=== PATIENT | female | born 1965 | race Two or more races ===

== ENCOUNTER 2023-06-22 10:50 | Emergency (ER) | payer OTHER ==
[2023-06-22 11:05] VITALS: TEMP 98.4
--- NOTE | 2023-06-22 12:40 | ED ---
General Adult HPI - General Chief complaint: Abdominal Pain Stated complaint: acid reflux Time Seen by Provider: 06/22/23 12:05 Source: patient, RN notes reviewed, old records reviewed Mode of arrival: ambulatory Limitations: no limitations - History of Present Illness Initial comments: 57-year-old female presenting with request for medication change. Patient has history of GERD, states over the past several days this has been worse. She does admit to eating [place] food which she knows does aggravate her reflux. She is currently on omeprazole 40 mg daily. She was uncertain if she could also take Tums. She denies chest pain. States her symptoms are consistent with previous reflux which she's had for many years. She is informed that this could be related to other potential causes besides gastric reflux but the patient declines any further testing and is here specifically just for change in medication. She has not seen a staff development coordinator and has not had endoscopy. - Related Data Previous Rx's Medication Instructions Recorded Esomeprazole Magnesium [NexIUM 20 mg PO DAILY 30 Days #30 tab 06/22/23 24Hr] Allergies Allergy/AdvReac Type Severity Reaction Status Date / Time guaifenesin [From Robitussin] Allergy Rash/Hives Verified 06/22/23 11:02 Penicillins Allergy Rash/Hives Verified 06/22/23 11:02 Review of Systems ROS Statement: Those systems with pertinent positive or pertinent negative responses have been documented in the HPI. ROS Other: All systems not noted in ROS Statement are negative. Past Medical History Past Medical History: GERD/Reflux History of Any Multi-Drug Resistant Organisms: None Reported Past Surgical History: No Surgical Hx Reported Past Psychological History: No Psychological Hx Reported Smoking Status: Never smoker Past Alcohol Use History: None Reported Past Drug Use History: None Reported General Exam Limitations: no limitations General appearance: alert, in no apparent distress Head exam: Present: atraumatic, normocephalic Eye exam: Present: normal appearance. Absent: PERRL ENT exam: Present: normal exam Neck exam: Present: normal inspection. Absent: tenderness, meningismus Respiratory exam: Present: normal lung sounds bilaterally. Absent: respiratory distress Cardiovascular Exam: Present: regular rate, normal rhythm GI/Abdominal exam: Present: soft. Absent: distended, tenderness, guarding Extremities exam: Present: normal inspection, normal capillary refill. Absent: pedal edema Neurological exam: Present: alert, oriented X3, CN II-XII intact. Absent: motor sensory deficit Psychiatric exam: Present: normal affect, normal mood Skin exam: Present: warm, dry, intact. Absent: cyanosis, diaphoretic Course Vital Signs 06/22/23 06/22/23 10:59 13:03 Temperature 98.4 F Pulse Rate 68 74 Respiratory 20 18 Rate Blood Pressure 183/83 170/88 O2 Sat by Pulse 99 98 Oximetry Medical Decision Making - Medical Decision Making Was pt. sent in by a medical professional or institution (, PA, UNPAID INTERN, urgent care, hospital, or [facility]...) When possible be specific @ -No Did you speak to anyone other than the patient for history (EMS, parent, family, police, friend...)? What history was obtained from this source @ -No Did you review nursing and triage notes (agree or disagree)? Why? @ -I reviewed and agree with nursing and triage notes Were old charts reviewed (outside hosp., previous admission, EMS record, old EKG, old radiological studies, urgent care reports/EKG's, [facility] records)? Report findings @ -No old charts were reviewed Differential Diagnosis (chest pain, altered mental status, abdominal pain women, abdominal pain men, vaginal bleeding, weakness, fever, dyspnea, syncope, headache, dizziness, GI bleed, back pain, seizure, CVA, palpatations, mental health, musculoskeletal)? @ Differential Abdominal Pain Women: Appendicitis, Cholecystitis, diverticulosis, ischemic bowel, pancreatitis, hepatitis, UTI, gastroenteritis, AAA, incarcerated hernia, bowel obstruction, constipation, inflammatory bowel, hepatitis, peptic ulcer disease, splenic infarction, gastric reflux perforated viscus, this is not meant to be an all- inclusive list. EKG interpreted by me (3pts min.). @ -As above X-rays interpreted by me (1pt min.). @ -None done CT interpreted by me (1pt min.). @ -None done U/S interpreted by me (1pt. min.). @ -None done What testing was considered but not performed or refused? (CT, X-rays, U/S, labs)? Why? @ -None What meds were considered but not given or refused? Why? @ -None Did you discuss the management of the patient with other professionals (professionals i.e. , PA, UNPAID INTERN, lab, RT, psych nurse, social services counselor, medical unit secretary, teacher, chief financial officer, family service caseworker)? Give summary @ -No Was smoking cessation discussed for >3mins.? @ -No Was critical care preformed (if so, how long)? @ -No Were there social determinants of health that impacted care today? How? (Homelessness, low income, unemployed, alcoholism, drug addiction, transportation, low edu. Level, literacy, decrease access to med. care, shelter, rehab)? @ -No Was there de-escalation of care discussed even if they declined (Discuss DNR or withdrawal of care, Hospice)? DNR status @ -No What co-morbidities impacted this encounter? (DM, HTN, Smoking, COPD, CAD, Cancer, CVA, ARF, Chemo, Hep., AIDS, mental health diagnosis, sleep apnea, morbid obesity)? @ -Gastric reflux Was patient admitted / discharged? Hospital course, mention meds given and route, prescriptions, significant lab abnormalities, going to OR and other pertinent info. @ -57-year-old female with request for medication change. Patient has symptoms consistent with reflux. I did entertain the possibility of alternative diagnoses with the patient states this is consistent with her previous symptoms and does not want further testing. I did respect her wishes and prescribed Nexium as well as Tums. She's given GI follow-up. Strict return parameters emergency department with any new or worsening symptoms. She is instructed to follow-up with her primary care provider regarding her elevated blood pressure. I would prefer to have done further testing. Undiagnosed new problem with uncertain prognosis? @ -No Drug Therapy requiring intensive monitoring for toxicity (Heparin, Nitro, Insulin, Cardizem)? @ -No Were any procedures done? @ -No Diagnosis/symptom? @ Gastric reflux Acute, or Chronic, or Acute on Chronic? @ -Chronic Uncomplicated (without systemic symptoms) or Complicated (systemic symptoms)? @ -default Side effects of treatment? @ -No Exacerbation, Progression, or Severe Exacerbation? @ -No Poses a threat to life or bodily function? How? (Chest pain, [place], [place], pneumonia, PE, COPD, DKA, ARF, appy, cholecystitis, CVA, Diverticulitis, Homicidal, Suicidal, threat to staff... and all critical care pts) @ -Low risk at this time Disposition Clinical Impression: Abdominal pain Disposition: HOME SELF-CARE Condition: Fair Instructions (If sedation given, give patient instructions): Abdominal Pain (ED) Additional Instructions: Please follow up with gastroenterology. Please return with any worsening or changing symptoms or any new concerns. You may also take Tums for her symptoms. Prescriptions: Esomeprazole Magnesium [NexIUM 24Hr] 20 mg PO DAILY 30 Days #30 tab Is patient prescribed a controlled substance at d/c from ED?: No Referrals: Speedy Ordoñez MD [Primary Care Provider] - 1-2 days Katherine Briones MD [STAFF PHYSICIAN] - 1-2 days Time of Disposition: 13:00
[2023-06-22 13:21] VITALS: BP 170/88; PULSE 74; RESP 18
== END 2023-06-22 13:35 | disposition home or self-care (01) ==
LOC: EC 10:50
DX: R10.9 Unspecified abdominal pain (principal); Z88.0 Allergy status to penicillin; Z88.8 Allergy status to other drugs, medicaments and biological substances
CPT/HCPCS: 99283

== ENCOUNTER 2023-12-14 09:33 | Emergency (ER) | payer OTHER ==
[2023-12-14 09:50] VITALS: RESP 18
[2023-12-14 11:05] LABS: Basophils # (A) 0.1 k/uL (0-0.2); Basophils % (A) 0 %; Eosinophils # (A) 0.1 k/uL (0-0.7); Eosinophils % (A) 1 %; HCT 43.8 % (34.0-46.0); HGB 14.6 gm/dL (11.4-16.0); Lymphocytes # (A) 1.7 k/uL (1.0-4.8); Lymphocytes % (A) 14 %; MCH 29.8 pg (25.0-35.0); MCHC 33.5 g/dL (31.0-37.0); Monocytes # (A) 0.4 k/uL (0-1.0); Monocytes % (A) 4 %; Neutrophils # (A) 9.1 k/uL (1.3-7.7); Neutrophils % (A) 79 %; Platelet Count 270 k/uL (150-450); RBC 4.92 m/uL (3.80-5.40); RDW 13.2 % (11.5-15.5); WBC 11.5 k/uL (3.8-10.6)
[2023-12-14 11:11] LABS: Appearance,Urine Clear (Clear); Bilirubin,Urine Negative (Negative); Blood,Urine Negative (Negative); Color,Urine Colorless; Glucose,Urine (UA) Negative (Negative); Ketones,Urine Negative (Negative); Leukocyte Esterase,Urine Negative (Negative); Nitrite,Urine Negative (Negative); Protein,Urine Negative (Negative); Specific Gravity,Urine 1.004 (1.001-1.035); Urobilinogen,Urine <2.0 mg/dL (<2.0)
[2023-12-14] MEDS: LIDOCAINE 4% PATCH TOPICAL ONE (11:15)
[2023-12-14 11:20] LABS: ALT 17 U/L (4-34); AST 22 U/L (14-36); African American GFR (CKD) >90 (>60 ml/min/1.73 sqM); Albumin 4.8 g/dL (3.5-5.0); Alkaline Phosphatase 88 U/L (38-126); Anion Gap 11 mmol/L; Blood Urea Nitrogen 6 mg/dL (7-17); Calcium 10.3 mg/dL (8.4-10.2); Carbon Dioxide 33 mmol/L (22-30); Chloride 96 mmol/L (98-107); Glucose 183 mg/dL (74-99); Non-African American GFR(CKD) >90 (>60 ml/min/1.73 sqM); Potassium 3.1 mmol/L (3.5-5.1); Sodium 140 mmol/L (137-145); Total Bilirubin 0.6 mg/dL (0.2-1.3); Total Protein 7.5 g/dL (6.3-8.2)
[2023-12-14 12:01] VITALS: TEMP 97.9
--- NOTE | 2023-12-14 12:16 | ED ---
Back Pain HPI - General Chief Complaint: Back Pain/Injury Stated Complaint: Back pain Time Seen by Provider: 12/14/23 09:49 Source: patient Limitations: no limitations - History of Present Illness Initial Comments: 58-year-old female presents emergency department reporting to right flank pain. Symptoms started Thursday night. Pain is worse with movement and bending. Better with rest. Patient is concerned that she possibly injured herself by twisting. Denies any falls. Denies any shortness of breath. There is pain with palpation. She has not been taking any medications for her symptoms. No fevers, chills or cough. Denies any anterior chest pain. No rashes. Denies any changes in her bowel or bladder habits. No other alleviating, precipitating or modifying factors - Related Data Previous Rx's Medication Instructions Recorded Esomeprazole Magnesium [NexIUM 20 mg PO DAILY 30 Days #30 tab 06/22/23 24Hr] Famotidine [Pepcid] 20 mg PO BID #56 tablet 12/14/23 Lidocaine 5% Patch [Lidoderm 5% 1 patch TOPICAL DAILY #25 patch 12/14/23 Patch] Allergies Allergy/AdvReac Type Severity Reaction Status Date / Time guaifenesin [From Robitussin] Allergy Rash/Hives Verified 12/14/23 09:47 Penicillins Allergy Rash/Hives Verified 12/14/23 09:47 Review of Systems ROS Statement: Those systems with pertinent positive or pertinent negative responses have been documented in the HPI. ROS Other: All systems not noted in ROS Statement are negative. Past Medical History Past Medical History: Diabetes Mellitus, GERD/Reflux, Hyperlipidemia, [place] History of Any Multi-Drug Resistant Organisms: None Reported Past Surgical History: Cholecystectomy Past Psychological History: No Psychological Hx Reported Smoking Status: Former smoker Past Alcohol Use History: None Reported Past Drug Use History: None Reported General Exam Limitations: no limitations General appearance: alert, in no apparent distress Head exam: Present: atraumatic, normocephalic, normal inspection Eye exam: Present: normal appearance, PERRL, EOMI. Absent: scleral icterus, conjunctival injection, periorbital swelling ENT exam: Present: normal exam, mucous membranes moist Neck exam: Present: normal inspection. Absent: tenderness, meningismus, lymphadenopathy Respiratory exam: Present: normal lung sounds bilaterally. Absent: respiratory distress, wheezes, rales, rhonchi, stridor Cardiovascular Exam: Present: regular rate, normal rhythm, normal heart sounds. Absent: systolic murmur, diastolic murmur, rubs, gallop, clicks GI/Abdominal exam: Present: soft, normal bowel sounds. Absent: distended, tenderness, guarding, rebound, rigid Extremities exam: Present: normal inspection, full ROM, normal capillary refill. Absent: tenderness, pedal edema, joint swelling, calf tenderness Back exam: Present: CVA tenderness (R) (Tenderness to palpation of the right lateral chest wall near ribs 610. No step-offs or deformities. No overlying ecchymosis or rash) Neurological exam: Present: alert, oriented X3, CN II-XII intact Psychiatric exam: Present: normal affect, normal mood Skin exam: Present: warm, dry, intact, normal color. Absent: rash Course Vital Signs 12/14/23 12/14/23 12/14/23 09:42 11:47 12:31 Temperature 98.1 F 97.9 F Pulse Rate 73 74 67 Respiratory 18 18 18 Rate Blood Pressure 151/89 161/78 130/79 O2 Sat by Pulse 99 99 97 Oximetry Medical Decision Making - Medical Decision Making Was pt. sent in by a medical professional or institution (, PA, CUSTOMER SUPPORT ENGINEER, urgent care, hospital, or correction...) When possible be specific @ -No Did you speak to anyone other than the patient for history (EMS, parent, family, police, friend...)? What history was obtained from this source @ -No Did you review nursing and triage notes (agree or disagree)? Why? @ -I reviewed and agree with nursing and triage notes Were old charts reviewed (outside hosp., previous admission, EMS record, old EKG, old radiological studies, urgent care reports/EKG's, correction records)? Report findings @ -No old charts were reviewed Differential Diagnosis (chest pain, altered mental status, abdominal pain women, abdominal pain men, vaginal bleeding, weakness, fever, dyspnea, syncope, headache, dizziness, GI bleed, back pain, seizure, CVA, palpatations, mental health, musculoskeletal)? @ -Pyelonephritis, renal stone, musculoskeletal strain, shingles EKG interpreted by me (3pts min.). @ -Yes and demonstrates sinus rhythm with a rate of 81. [place] interval 171. QRS 88. QTc of 436. No acute ST segment elevations or depressions X-rays interpreted by me (1pt min.). @ -Not done CT interpreted by me (1pt min.). @ -None done U/S interpreted by me (1pt. min.). @ -None done What testing was considered but not performed or refused? (CT, X-rays, U/S, labs)? Why? @ -None What meds were considered but not given or refused? Why? @ -None Did you discuss the management of the patient with other professionals (professionals i.e. DrMike, PA, CUSTOMER SUPPORT ENGINEER, lab, RT, psych nurse, social media editor, insole coverer, teacher, navy airspace officer, casey saw operator)? Give summary @ -No Was smoking cessation discussed for >3mins.? @ -No Was critical care preformed (if so, how long)? @ -No Were there social determinants of health that impacted care today? How? (Homelessness, low income, unemployed, alcoholism, drug addiction, transportation, low edu. Level, literacy, decrease access to med. care, penitentiary, rehab)? @ -No Was there de-escalation of care discussed even if they declined (Discuss DNR or withdrawal of care, Hospice)? DNR status @ -No What co-morbidities impacted this encounter? (DM, HTN, Smoking, COPD, CAD, Cancer, CVA, ARF, Chemo, Hep., AIDS, mental health diagnosis, sleep apnea, morbid obesity)? @ -None Was patient admitted / discharged? Hospital course, mention meds given and route, prescriptions, significant lab abnormalities, going to OR and other pertinent info. @ -Upon arrival patient was seen and evaluated in room 29. Thorough history and physical exam was performed. Patient does have reproducible pain upon palpation. She does provide a urine sample. Laboratory studies are conducted as patient states that the pain radiates around to her anterior abdomen. Twelve-lead EKG was performed. Lidoderm patches applied to the site. Patient has improvement in her pain with the Lidoderm patch. I did discuss the diagnosi s, parenteral treatment options. I do feel that the patient's symptoms are likely musculoskeletal. To be discharged home with a prescription for Lidoderm patches at this time. Instructed to take Tylenol as needed. Patient has concern that it is possibly due to her GERD and therefore requests something additional. I will prescribe her Pepcid. She is to follow-up with her doctor and return for any new or worsening symptoms. Patient was agreeable to plan she was discharged in stable condition Undiagnosed new problem with uncertain prognosis? @ -No Drug Therapy requiring intensive monitoring for toxicity (Heparin, Nitro, Insulin, Cardizem)? @ -No Were any procedures done? @ -No Diagnosis/symptom? @ -Default Acute, or Chronic, or Acute on Chronic? @ -Acute right flank pain, suspected musculoskeletal strain Uncomplicated (without systemic symptoms) or Complicated (systemic symptoms)? @ -Complicated Side effects of treatment? @ -No Exacerbation, Progression, or Severe Exacerbation? @ -No Poses a threat to life or bodily function? How? (Chest pain, [place], [place], pneumonia, PE, COPD, DKA, ARF, appy, cholecystitis, CVA, Diverticulitis, Homicidal, Suicidal, threat to staff... and all critical care pts) @ -No - Lab Data Result diagrams: 12/14/23 10:49 12/14/23 10:49 Lab Results 12/14/23 12/14/23 12/14/23 Range/Units 10:49 10:49 10:49 WBC 11.5 H (3.8-10.6) k/uL RBC 4.92 (3.80-5.40) m/uL Hgb 14.6 (11.4-16.0) gm/dL Hct 43.8 (34.0-46.0) % MCV 89.0 (80.0-100.0) fL MCH 29.8 (25.0-35.0) pg MCHC 33.5 (31.0-37.0) g/dL RDW 13.2 (11.5-15.5) % Plt Count 270 (150-450) k/uL MPV 10.0 Neutrophils % 79 % Lymphocytes % 14 % Monocytes % 4 % Eosinophils % 1 % Basophils % 0 % Neutrophils # 9.1 H (1.3-7.7) k/uL Lymphocytes # 1.7 (1.0-4.8) k/uL Monocytes # 0.4 (0-1.0) k/uL Eosinophils # 0.1 (0-0.7) k/uL Basophils # 0.1 (0-0.2) k/uL Sodium 140 (137-145) mmol/L Potassium 3.1 L (3.5-5.1) mmol/L Chloride 96 L (98-107) mmol/L Carbon Dioxide 33 H (22-30) mmol/L Anion Gap 11 mmol/L BUN 6 L (7-17) mg/dL Creatinine 0.48 L (0.52-1.04) mg/dL Est GFR (CKD-EPI)AfAm >90 (>60 ml/min/1.73 sqM) Est GFR (CKD-EPI)NonAf >90 (>60 ml/min/1.73 sqM) Glucose 183 H (74-99) mg/dL Calcium 10.3 H (8.4-10.2) mg/dL Total Bilirubin 0.6 (0.2-1.3) mg/dL AST 22 (14-36) U/L ALT 17 (4-34) U/L Alkaline Phosphatase 88 (38-126) U/L Troponin I (0.000-0.034) ng/mL Total Protein 7.5 (6.3-8.2) g/dL Albumin 4.8 (3.5-5.0) g/dL Urine Color Colorless Urine Appearance Clear (Clear) Urine pH 7.0 (5.0-8.0) Ur Specific [place] 1.004 (1.001-1.035) Urine Protein Negative (Negative) Urine Glucose (UA) Negative (Negative) Urine Ketones Negative (Negative) Urine Blood Negative (Negative) Urine Nitrite Negative (Negative) Urine Bilirubin Negative (Negative) Urine Urobilinogen <2.0 (<2.0) mg/dL Ur Leukocyte Esterase Negative (Negative) 12/14/23 Range/Units 10:49 WBC (3.8-10.6) k/uL RBC (3.80-5.40) m/uL Hgb (11.4-16.0) gm/dL Hct (34.0-46.0) % MCV (80.0-100.0) fL MCH (25.0-35.0) pg MCHC (31.0-37.0) g/dL RDW (11.5-15.5) % Plt Count (150-450) k/uL MPV Neutrophils % % Lymphocytes % % Monocytes % % Eosinophils % % Basophils % % Neutrophils # (1.3-7.7) k/uL Lymphocytes # (1.0-4.8) k/uL Monocytes # (0-1.0) k/uL Eosinophils # (0-0.7) k/uL Basophils # (0-0.2) k/uL Sodium (137-145) mmol/L Potassium (3.5-5.1) mmol/L Chloride (98-107) mmol/L Carbon Dioxide (22-30) mmol/L Anion Gap mmol/L BUN (7-17) mg/dL Creatinine (0.52-1.04) mg/dL Est GFR (CKD-EPI)AfAm (>60 ml/min/1.73 sqM) Est GFR (CKD-EPI)NonAf (>60 ml/min/1.73 sqM) Glucose (74-99) mg/dL Calcium (8.4-10.2) mg/dL Total Bilirubin (0.2-1.3) mg/dL AST (14-36) U/L ALT (4-34) U/L Alkaline Phosphatase (38-126) U/L Troponin I <0.012 (0.000-0.034) ng/mL Total Protein (6.3-8.2) g/dL Albumin (3.5-5.0) g/dL Urine Color Urine Appearance (Clear) Urine pH (5.0-8.0) Ur Specific [place] (1.001-1.035) Urine Protein (Negative) Urine Glucose (UA) (Negative) Urine Ketones (Negative) Urine Blood (Negative) Urine Nitrite (Negative) Urine Bilirubin (Negative) Urine Urobilinogen (<2.0) mg/dL Ur Leukocyte Esterase (Negative) Disposition Clinical Impression: Flank pain, GERD (gastroesophageal reflux disease) Disposition: HOME SELF-CARE Condition: Stable Instructions (If sedation given, give patient instructions): Flank Pain (ED) Additional Instructions: Take the Pepcid only as needed for reflux and follow-up with your primary care doctor. Return for any new or worsening symptoms Prescriptions: Lidocaine 5% Patch [Lidoderm 5% Patch] 1 patch TOPICAL DAILY #25 patch Famotidine [Pepcid] 20 mg PO BID #56 tablet Is patient prescribed a controlled substance at d/c from ED?: No Referrals: Alayna Holt MD [Primary Care Provider] - 1-2 days Time of Disposition: 12:15
[2023-12-14 12:43] VITALS: BP 130/79; PULSE 67
== END 2023-12-14 12:32 | disposition home or self-care (01) ==
LOC: EC 09:33
DX: K21.9 Gastro-esophageal reflux disease without esophagitis (principal); Z88.0 Allergy status to penicillin; Z88.8 Allergy status to other drugs, medicaments and biological substances; Z87.891 Personal history of nicotine dependence
CPT/HCPCS: 36415; 80053; 81003; 84484; 85025; 93005; 99284

== ENCOUNTER 2024-01-02 17:58 | Emergency (ER) | payer OTHER ==
--- NOTE | 2024-01-02 19:59 | ED ---
Eye Problem HPI - General Chief complaint: Eye Problems Stated complaint: Dry eyes, lump in throat Time Seen by Provider: 01/02/24 19:27 Source: patient Mode of arrival: ambulatory Limitations: no limitations - History of Present Illness Initial comments: 58-year-old female with known seasonal allergies presenting to the ED with complaints of dry/itchy eyes, rhinorrhea and congestion. Patient reports she recently moved back from [place] and did not have any difficulties with seasonal allergies there however since moving back here has had problems with seasonal allergies. Has been taking Claritin and Flonase with improvement of symptoms however today notes predominantly itchy/dry eyes. No vision losses. No discharge from eyes. No fever or chills. Patient states that she tried lubricating drops which did not resolve her symptoms prompting presentation to the ED for further evaluation. No other complaints at this time. - Related Data Previous Rx's Medication Instructions Recorded Esomeprazole Magnesium [NexIUM 20 mg PO DAILY 30 Days #30 tab 06/22/23 24Hr] Famotidine [Pepcid] 20 mg PO BID #56 tablet 12/14/23 Lidocaine 5% Patch [Lidoderm 5% 1 patch TOPICAL DAILY #25 patch 12/14/23 Patch] Allergies Allergy/AdvReac Type Severity Reaction Status Date / Time guaifenesin [From Robitussin] Allergy Rash/Hives Verified 12/14/23 09:47 Penicillins Allergy Rash/Hives Verified 12/14/23 09:47 Review of Systems ROS Statement: Those systems with pertinent positive or pertinent negative responses have been documented in the HPI. ROS Other: All systems not noted in ROS Statement are negative. Past Medical History Past Medical History: Diabetes Mellitus, GERD/Reflux, Hyperlipidemia, Hypertension History of Any Multi-Drug Resistant Organisms: None Reported Past Surgical History: Cholecystectomy Past Psychological History: No Psychological Hx Reported Smoking Status: Former smoker Past Alcohol Use History: None Reported Past Drug Use History: None Reported General Exam Limitations: no limitations General appearance: alert, in no apparent distress Eye exam: Present: PERRL, EOMI, other (Pressure right eye 23 pressure left 22). Absent: conjunctival injection, nystagmus, periorbital swelling, periorbital tenderness Neck exam: Present: normal inspection Respiratory exam: Present: normal lung sounds bilaterally Cardiovascular Exam: Present: regular rate GI/Abdominal exam: Present: soft Neurological exam: Present: alert, oriented X3 Skin exam: Present: warm, dry Course Vital Signs 01/02/24 18:36 Temperature 98.1 F Pulse Rate 75 Respiratory 18 Rate Blood Pressure 172/78 O2 Sat by Pulse 97 Oximetry Medical Decision Making - Medical Decision Making Was pt. sent in by a medical professional or institution (ASHLEY Cm, HSE COORDINATOR, urgent care, hospital, or longterm...) When possible be specific @ -No Did you speak to anyone other than the patient for history (EMS, parent, family, police, friend...)? What history was obtained from this source @ -No Did you review nursing and triage notes (agree or disagree)? Why? @ -I reviewed and agree with nursing and triage notes Were old charts reviewed (outside hosp., previous admission, EMS record, old EKG, old radiological studies, urgent care reports/EKG's, longterm records)? Report findings @ -No old charts were reviewed Differential Diagnosis (chest pain, altered mental status, abdominal pain women, abdominal pain men, vaginal bleeding, weakness, fever, dyspnea, syncope, headache, dizziness, GI bleed, back pain, seizure, CVA, palpatations, mental health, musculoskeletal)? @ -Preorbital cellulitis, orbital cellulitis, foreign body in eye, acute angle- closure glaucoma. This not meant to be an all-inclusive list. EKG interpreted by me (3pts min.). @ -None X-rays interpreted by me (1pt min.). @ -None done CT interpreted by me (1pt min.). @ -None done U/S interpreted by me (1pt. min.). @ -None done What testing was considered but not performed or refused? (CT, X-rays, U/S, labs)? Why? @ -None What meds were considered but not given or refused? Why? @ -None Did you discuss the management of the patient with other professionals (professionals i.e. ASHLEY Cm, HSE COORDINATOR, lab, RT, psych nurse, social service manager, dull coat mill operator, teacher, chief strategy officer, case resource manager)? Give summary @ -No Was smoking cessation discussed for >3mins.? @ -No Was critical care preformed (if so, how long)? @ -No Were there social determinants of health that impacted care today? How? (Homelessness, low income, unemployed, alcoholism, drug addiction, transportation, low edu. Level, literacy, decrease access to med. care, fci, rehab)? @ -No Was there de-escalation of care discussed even if they declined (Discuss DNR or withdrawal of care, Hospice)? DNR status @ -No What co-morbidities impacted this encounter? (DM, HTN, Smoking, COPD, CAD, Canc er, CVA, ARF, Chemo, Hep., AIDS, mental health diagnosis, sleep apnea, morbid obesity)? @ -None Was patient admitted / discharged? Hospital course, mention meds given and route, prescriptions, significant lab abnormalities, going to OR and other pertinent info. @ -Discharge 58-year-old female with known seasonal allergies presenting to the ED with complaints of rhinorrhea, congestion, dry eyes, itchy eyes. Has been using Claritin and Flonase with improvement of rhinorrhea and congestion however does not improve the dry/itchy eyes. Denies vision losses. No discharge from the eyes. No fever or chills. Eye exam unremarkable. Symptoms likely related to seasonal allergies. Provided antihistamine eyedrops and discharged home in stable condition with instructions to follow-up with her PCP. Undiagnosed new problem with uncertain prognosis? @ -No Drug Therapy requiring intensive monitoring for toxicity (Heparin, Nitro, Insulin, Cardizem)? @ -No Were any procedures done? @ -No Diagnosis/symptom? @ -Seasonal allergies Acute, or Chronic, or Acute on Chronic? @ -Acute Uncomplicated (without systemic symptoms) or Complicated (systemic symptoms)? @ -Uncomplicated Side effects of treatment? @ -No Exacerbation, Progression, or Severe Exacerbation? @ -No Poses a threat to life or bodily function? How? (Chest pain, [place], [place], pneumonia, PE, COPD, DKA, ARF, appy, cholecystitis, CVA, Diverticulitis, Homicidal, Suicidal, threat to staff... and all critical care pts) @ -No Disposition Clinical Impression: Seasonal allergies Disposition: HOME SELF-CARE Condition: Good Instructions (If sedation given, give patient instructions): Allergies (ED), Allergic Rhinitis (ED) Additional Instructions: Please return to the Emergency Department if symptoms worsen or any other concerns. Please follow-up with your PCP. 1 eyedrop in each eye twice daily as needed for symptoms. Is patient prescribed a controlled substance at d/c from ED?: No Referrals: Alayna Holt MD [Primary Care Provider] - 1-2 days Time of Disposition: 20:03
[2024-01-02] MEDS: KETOTIFEN 0.025% OPHTH DROPS 5 ML BTL BOTH EYES SCH (20:22)
[2024-01-02 20:50] VITALS: BP 146/83; PULSE 73; RESP 16; TEMP 98.6
== END 2024-01-02 20:27 | disposition home or self-care (01) ==
LOC: EC 17:58
DX: J30.2 Other seasonal allergic rhinitis (principal); Z87.891 Personal history of nicotine dependence; Z88.0 Allergy status to penicillin; Z88.8 Allergy status to other drugs, medicaments and biological substances
CPT/HCPCS: 99283

== ENCOUNTER 2024-10-27 18:47 | Emergency (ER) | payer OTHER ==
--- NOTE | 2024-10-27 19:44 | ED ---
Eye Problem HPI - General Stated complaint: R eye problem Time Seen by Provider: 10/27/24 19:01 Source: patient, RN notes reviewed Mode of arrival: ambulatory Limitations: no limitations - History of Present Illness Initial comments: This is a 59-year-old female complaining of thick discharge from right eye x 3 days. Patient endorses sinus symptoms starting last week, receiving Medrol Dosepak which she is still taking. Patient states discharge from eye is "gooky" but denies waking with eye sealed shut, significant change in vision or foreign body. Patient wears glasses. Onset/Timin -: days(s) Location: right eye If Injury: none Eye Symptoms: discharge Context: recent uri Associated Symptoms: none Treatments Prior to Arrival: none - Related Data Previous Rx's Medication Instructions Recorded Esomeprazole Magnesium [NexIUM 20 mg PO DAILY 30 Days #30 tab 06/22/23 24Hr] Famotidine [Pepcid] 20 mg PO BID #56 tablet 12/14/23 Lidocaine 5% Patch [Lidoderm 5% 1 patch TOPICAL DAILY #25 patch 12/14/23 Patch] Polymyxin B-Trimeth Sulf Ophth 1 drops RIGHT EYE Q3H #10 ml 10/27/24 [Polytrim Opthalmic] Allergies Allergy/AdvReac Type Severity Reaction Status Date / Time guaifenesin [From Robitussin] Allergy Rash/Hives Verified 10/27/24 21:49 Penicillins Allergy Rash/Hives Verified 10/27/24 21:49 Review of Systems ROS Statement: Those systems with pertinent positive or pertinent negative responses have been documented in the HPI. ROS Other: All systems not noted in ROS Statement are negative. Past Medical History Past Medical History: Diabetes Mellitus, GERD/Reflux, Hyperlipidemia, Hypertension History of Any Multi-Drug Resistant Organisms: None Reported Past Surgical History: Cholecystectomy Past Psychological History: No Psychological Hx Reported Smoking Status: Former smoker Past Alcohol Use History: None Reported Past Drug Use History: None Reported General Exam General appearance: alert, in no apparent distress Head exam: Present: atraumatic, normocephalic, normal inspection Eye exam: Present: normal appearance, PERRL, EOMI, other (Patient wears glasses. No obvious conjunctival discharge or epiphora. Snellen chart: Right20/25, left20/30). Absent: scleral icterus, conjunctival injection, periorbital swelling Pupils: Present: normal accommodation ENT exam: Present: normal exam, mucous membranes moist Neck exam: Present: normal inspection. Absent: tenderness, meningismus, lymphadenopathy Respiratory exam: Present: normal lung sounds bilaterally. Absent: respiratory distress, wheezes, rales, rhonchi, stridor Cardiovascular Exam: Present: regular rate, normal rhythm, normal heart sounds. Absent: systolic murmur, diastolic murmur, rubs, gallop, clicks GI/Abdominal exam: Present: soft, normal bowel sounds. Absent: distended, tenderness, guarding, rebound, rigid Extremities exam: Present: normal inspection, full ROM, normal capillary refill. Absent: tenderness, pedal edema, joint swelling, calf tenderness Back exam: Present: normal inspection Neurological exam: Present: alert, oriented X3, CN II-XII intact Psychiatric exam: Present: normal affect, normal mood Skin exam: Present: warm, dry, intact, normal color. Absent: rash Course Vital Signs 10/27/24 21:47 Temperature 98 F Pulse Rate 77 Respiratory 16 Rate Blood Pressure 138/81 O2 Sat by Pulse 97 Oximetry Medical Decision Making - Medical Decision Making Was pt. sent in by a medical professional or institution (, [place], HOME HEALTH CNA, urgent care, hospital, or jail...) When possible be specific @ -No Did you speak to anyone other than the patient for history (EMS, parent, family, police, friend...)? What history was obtained from this source @ -No Did you review nursing and triage notes (agree or disagree)? Why? @ -I reviewed and agree with nursing and triage notes Were old charts reviewed (outside hosp., previous admission, EMS record, old EKG, old radiological studies, urgent care reports/EKG's, jail records)? Report findings @ -No old charts were reviewed Differential Diagnosis (chest pain, altered mental status, abdominal pain women, abdominal pain men, vaginal bleeding, weakness, fever, dyspnea, syncope, headache, dizziness, GI bleed, back pain, seizure, CVA, palpatations, mental health, musculoskeletal)? @ -Bacterial conjunctivitis, viral conjunctivitis, allergic conjunctivitis, preseptal cellulitis, orbital cellulitis, iritis, episcleritis, this is not an exhaustive list EKG interpreted by me (3pts min.). @ -Not done X-rays interpreted by me (1pt min.). @ -None done CT interpreted by me (1pt min.). @ -None done U/S interpreted by me (1pt. min.). @ -None done What testing was considered but not performed or refused? (CT, X-rays, U/S, labs)? Why? @ -None What meds were considered but not given or refused? Why? @ -None Did you discuss the management of the patient with other professionals (professionals i.e. Dr., PA, HOME HEALTH CNA, lab, RT, psych nurse, protective services social worker, doubler operator, teacher, property utilization officer, bilingual case manager)? Give summary @ -No Was smoking cessation discussed for >3mins.? @ -No Was critical care preformed (if so, how long)? @ -No Were there social determinants of health that impacted care today? How? (Homelessness, low income, unemployed, alcoholism, drug addiction, transportation, low edu. Level, literacy, decrease access to med. care, assisted, rehab)? @ -No Was there de-escalation of care discussed even if they declined (Discuss DNR or withdrawal of care, Hospice)? DNR status @ -No What co-morbidities impacted this encounter? (DM, HTN, Smoking, COPD, CAD, Cancer, CVA, ARF, Chemo, Hep., AIDS, mental health diagnosis, sleep apnea, morbid obesity)? @ -None Was patient admitted / discharged? Hospital course, mention meds given and route, prescriptions, significant lab abnormalities, going to OR and other pertinent info. @ -Patient treated based on description in HPI due to thick discharge from eye and associated preceding sinusitis. Polytrim drops sent to pharmacy. Advised follow-up with PCP/ophthalmology if there are are any ongoing symptoms. Discussed patient with Dr. Dickens. Undiagnosed new problem with uncertain prognosis? @ -No Drug Therapy requiring intensive monitoring for toxicity (Heparin, Nitro, Insulin, Cardizem)? @ -No Were any procedures done? @ -No Diagnosis/symptom? @ -Bacterial conjunctivitis Acute, or Chronic, or Acute on Chronic? @ -Acute Uncomplicated (without systemic symptoms) or Complicated (systemic symptoms)? @ -Uncomplicated Side effects of treatment? @ -No Exacerbation, Progression, or Severe Exacerbation? @ -No Poses a threat to life or bodily function? How? (Chest pain, [place], [place], pneumonia, PE, COPD, DKA, ARF, appy, cholecystitis, CVA, Diverticulitis, Homicidal, Suicidal, threat to staff... and all critical care pts) @ -No Disposition Clinical Impression: Bacterial conjunctivitis of right eye Disposition: HOME SELF-CARE Condition: Good Instructions (If sedation given, give patient instructions): Conjunctivitis (ED) Prescriptions: Polymyxin B-Trimeth Sulf Ophth [Polytrim Opthalmic] 1 drops RIGHT EYE Q3H #10 ml Is patient prescribed a controlled substance at d/c from ED?: No Referrals: Alayna Holt MD [Primary Care Provider] - 1-2 days Time of Disposition: 21:10
[2024-10-27 22:05] VITALS: BP 132/76; PULSE 70; RESP 18; TEMP 98.2
== END 2024-10-27 22:50 | disposition home or self-care (01) ==
LOC: EC 18:47
DX: H10.31 Unspecified acute conjunctivitis, right eye (principal); Z87.891 Personal history of nicotine dependence; Z88.0 Allergy status to penicillin; Z88.6 Allergy status to analgesic agent
CPT/HCPCS: 99282

== ENCOUNTER 2024-11-16 15:48 | Emergency (ER) | payer OTHER ==
[2024-11-16 15:54] VITALS: TEMP 98.1
--- NOTE | 2024-11-16 16:06 | ED ---
Fall HPI - General Chief Complaint: Fall Stated Complaint: pain right arm and right knee from fall Time Seen by Provider: 11/16/24 16:05 Source: patient, family, RN notes reviewed Mode of arrival: ambulatory Limitations: no limitations - History of Present Illness Initial Comments: 59-year-old female presented to the ER for evaluation status post fall. Patient states she was walking on her apartment complex the [facility] which has uneven concrete. She states she tripped on one of the raised slabs causing her to fall landing on her hands and knees. She is reporting most of her pain to her right knee and right elbow. She denies any paresthesias to upper or lower extremities. Denies any head injury, loss of consciousness or blood thinner use. Patient denies any dizziness, lightheadedness, chest pain or shortness of breath prior to fall. Tetanus is not up-to-date per patient. Patient has not taken anything for pain at this time. No other injuries or complaints. - Related Data Previous Rx's Medication Instructions Recorded Esomeprazole Magnesium [NexIUM 20 mg PO DAILY 30 Days #30 tab 06/22/23 24Hr] Famotidine [Pepcid] 20 mg PO BID #56 tablet 12/14/23 Lidocaine 5% Patch [Lidoderm 5% 1 patch TOPICAL DAILY #25 patch 12/14/23 Patch] Polymyxin B-Trimeth Sulf Ophth 1 drops RIGHT EYE Q3H #10 ml 10/27/24 [Polytrim Opthalmic] Ibuprofen [Motrin] 600 mg PO Q8HR PRN #30 tab 11/16/24 Allergies Allergy/AdvReac Type Severity Reaction Status Date / Time guaifenesin [From Robitussin] Allergy Rash/Hives Verified 11/16/24 15:54 Penicillins Allergy Rash/Hives Verified 11/16/24 15:54 Review of Systems ROS Statement: Those systems with pertinent positive or pertinent negative responses have been documented in the HPI. ROS Other: All systems not noted in ROS Statement are negative. Past Medical History Past Medical History: Diabetes Mellitus, GERD/Reflux, Hyperlipidemia, Hypertension History of Any Multi-Drug Resistant Organisms: None Reported Past Surgical History: Cholecystectomy Past Psychological History: No Psychological Hx Reported Smoking Status: Former smoker Past Alcohol Use History: None Reported Past Drug Use History: None Reported General Exam Limitations: no limitations General appearance: alert, in no apparent distress Head exam: Present: atraumatic, normocephalic, normal inspection Neck exam: Present: normal inspection. Absent: tenderness, meningismus, lymphadenopathy Respiratory exam: Present: normal lung sounds bilaterally. Absent: respiratory distress, wheezes, rales, rhonchi, stridor Cardiovascular Exam: Present: regular rate, normal rhythm, normal heart sounds. Absent: systolic murmur, diastolic murmur, rubs, gallop, clicks Extremities exam: Present: full ROM, tenderness (Right olecranon process.), normal capillary refill (2+ bilateral radial, PT/DP pulses) Back exam: Present: normal inspection Neurological exam: Present: alert, oriented X3, CN II-XII intact Skin exam: Present: warm, dry, intact, normal color, abrasion (Right elbow and right tibial tuberosity) Course Vital Signs 11/16/24 11/16/24 15:49 17:14 Temperature 98.1 F Pulse Rate 77 68 Respiratory 18 16 Rate Blood Pressure 154/83 139/83 O2 Sat by Pulse 95 98 Oximetry Disposition Clinical Impression: Sprain of scapholunate ligament, Fall, Abrasion Disposition: HOME SELF-CARE Condition: Stable Instructions (If sedation given, give patient instructions): Fall Prevention (ED) Additional Instructions: You may take [id number] ibuprofen and Tylenol for pain control. Follow-up closely with orthopedics. Return to the ER for any new or concerns. Prescriptions: Ibuprofen [Motrin] 600 mg PO Q8HR PRN #30 tab PRN Reason: Pain Is patient prescribed a controlled substance at d/c from ED?: No Referrals: Alayna Holt MD [Primary Care Provider] - 1-2 days Derrick Ho MD [STAFF PHYSICIAN] - 1-2 days Time of Disposition: 17:54
[2024-11-16] MEDS: IBUPROFEN 600 MG TAB PO STA (16:22)
[2024-11-16] MEDS: DIPH,PERTUS(ACELL)TETVAC-LF 0.5 ML VIAL IM ONE (16:26)
--- NOTE | 2024-11-16 17:13 | XR ---
EXAMINATION TYPE: XR elbow complete RT DATE OF EXAM: 11/16/2024 5:07 PM COMPARISON: None. CLINICAL INDICATION: Female, 59 years old with history of fall; PHH, pain TECHNIQUE: XR elbow complete RT; elbow was examined in AP, lateral, and oblique projections. FINDINGS: No evidence of any acute osseous pathology, joint dislocation, or soft tissue swelling is n oted. No evidence of joint effusion is present. Enthesophyte formation near the medial and lateral e picondyles. Degenerative osteophytic changes of the right elbow with joint space loss. IMPRESSION: No evidence of acute fracture. [facility], , 11/16/2024 5:11 PM
[2024-11-16 17:15] VITALS: BP 139/83; PULSE 68; RESP 16
--- NOTE | 2024-11-16 17:18 | XR ---
EXAMINATION TYPE: XR hand complete RT DATE OF EXAM: 11/16/2024 5:07 PM COMPARISON: None available. CLINICAL INDICATION: Female, 59 years old with history of fall; PHH, pain TECHNIQUE: XR hand complete RT Frontal, lateral and oblique views were obtained. FINDINGS: Widening of the scapholunate interval measuring approximately 4 mm. Well-corticated ossific density adjacent to the triquetrum felt to most likely reflect sequelae of old trauma. Osseous struc tures demineralized. Small ossific fragment adjacent to the base of the second digit proximal phalanx is indeterminant for acute avulsion fracture. Well-corticated ossific fragment adjacent to the base of theZ fifth digit proximal phalanx of the most likely reflect sequelae of old trauma. Interphalange al degenerative changes. No unexpected radiopaque foreign body. IMPRESSION: 1. Questionable small avulsion fracture at the base of the second digit proximal phalanx. Recommend correlation with point tenderness. 2. Widening of the scapholunate interval suspicious for underlying ligamentous injury. Consider outp atient MRI for further evaluation as clinically warranted. [facility], , 11/16/2024 5:16 PM
--- NOTE | 2024-11-16 17:19 | XR ---
EXAMINATION TYPE: XR knee complete RT DATE OF EXAM: 11/16/2024 5:07 PM COMPARISON: None. CLINICAL INDICATION: Female, 59 years old with history of fall; PHH, pain TECHNIQUE: XR knee complete RT views submitted.. FINDINGS: No acute fracture or dislocation. Moderate to severe tricompartmental degenerative osteoart hritis with severe medial compartment joint space loss. Small suprapatellar joint effusion. Despite a long the superior patella near the quadriceps insertion site.z IMPRESSION: 1. No acute osseous pathology. 2. Moderate to severe tricompartmental osteoarthritic changes. [facility], , 11/16/2024 5:17 PM
== END 2024-11-16 18:15 | disposition home or self-care (01) ==
LOC: EC 15:48
DX: S43.81XA Sprain of other specified parts of right shoulder girdle, initial encounter (principal); S80.211A Abrasion, right knee, initial encounter; Z87.891 Personal history of nicotine dependence; Z88.0 Allergy status to penicillin; Z88.8 Allergy status to other drugs, medicaments and biological substances; Z23 Encounter for immunization; W01.0XXA Fall on same level from slipping, tripping and stumbling without subsequent striking against object, initial encounter
CPT/HCPCS: 90471; 90715; 99284

== ENCOUNTER 2024-12-03 15:20 | Emergency (ER) | payer OTHER ==
--- NOTE | 2024-12-03 16:12 | ED ---
Upper Extremity HPI - General Chief Complaint: Extremity Injury, Upper Stated Complaint: L hand pain Time Seen by Provider: 12/03/24 16:09 Source: patient, RN notes reviewed Mode of arrival: ambulatory Limitations: no limitations - History of Present Illness Initial Comments: 59-year-old female presenting for left hand pain x 2 weeks. States she had a mechanical trip and fall on her patio on November 16 where she fell on an outstretched hand. States she was seen in the ER for this at that time and was predominantly experiencing pain in the right hand. States over the next few days after the fall, she began to experience pain and swelling in the left hand. Reports intermittent pain and swelling near the base of the fourth and fifth metacarpal. No difficulty or pain with range of motion. - Related Data Previous Rx's Medication Instructions Recorded Esomeprazole Magnesium [NexIUM 20 mg PO DAILY 30 Days #30 tab 06/22/23 24Hr] Famotidine [Pepcid] 20 mg PO BID #56 tablet 12/14/23 Lidocaine 5% Patch [Lidoderm 5% 1 patch TOPICAL DAILY #25 patch 12/14/23 Patch] Polymyxin B-Trimeth Sulf Ophth 1 drops RIGHT EYE Q3H #10 ml 10/27/24 [Polytrim Opthalmic] Ibuprofen [Motrin] 600 mg PO Q8HR PRN #30 tab 11/16/24 Allergies Allergy/AdvReac Type Severity Reaction Status Date / Time guaifenesin [From Robitussin] Allergy Rash/Hives Verified 12/03/24 15:38 Penicillins Allergy Rash/Hives Verified 12/03/24 15:38 Review of Systems ROS Statement: Those systems with pertinent positive or pertinent negative responses have been documented in the HPI. ROS Other: All systems not noted in ROS Statement are negative. Past Medical History Past Medical History: Diabetes Mellitus, GERD/Reflux, Hyperlipidemia, Hypertension History of Any Multi-Drug Resistant Organisms: None Reported Past Surgical History: Cholecystectomy Past Psychological History: No Psychological Hx Reported Smoking Status: Former smoker Past Alcohol Use History: None Reported Past Drug Use History: None Reported General Exam Limitations: no limitations General appearance: alert, in no apparent distress Head exam: Present: atraumatic, normocephalic, normal inspection Left Elbow exam: Present: normal inspection, full ROM. Absent: tenderness, swelling Forearm Wrist exam: Present: normal inspection, full ROM. Absent: tenderness, swelling Hand Wrist exam: Present: normal inspection, full ROM. Absent: tenderness, swelling Vascular: Present: normal capillary refill, radial pulse. Absent: vascular compromise Neurological exam: Present: alert, oriented X3 Psychiatric exam: Present: normal affect, normal mood Skin exam: Present: warm, dry, intact, normal color. Absent: rash Course Vital Signs 12/03/24 15:35 Temperature 98.4 F Pulse Rate 65 Respiratory 18 Rate Blood Pressure 133/67 O2 Sat by Pulse 97 Oximetry Medical Decision Making - Medical Decision Making Was pt. sent in by a medical professional or institution (, PA, [facility], urgent care, hospital, or jail...) When possible be specific @ -No Did you speak to anyone other than the patient for history (EMS, parent, family, police, friend...)? What history was obtained from this source @ -No Did you review nursing and triage notes (agree or disagree)? Why? @ -I reviewed and agree with nursing and triage notes Were old charts reviewed (outside hosp., previous admission, EMS record, old EKG, old radiological studies, urgent care reports/EKG's, jail records)? Report findings @ -No old charts were reviewed Differential Diagnosis (chest pain, altered mental status, abdominal pain women, abdominal pain men, vaginal bleeding, weakness, fever, dyspnea, syncope, headache, dizziness, GI bleed, back pain, seizure, CVA, palpatations, mental health, musculoskeletal)? @ -Differential Musculoskeletal Muscular strain, contusion, ligament sprain, fracture, arthritis, septic arthritis, bursitis, cellulitis, muscle spasm, nerve compression, DVT, arterial occlusion, herpes zoster, electrolyte abnormality, tumor.... This is not meant to be in all inclusive list EKG interpreted by me (3pts min.). @ -None X-rays interpreted by me (1pt min.). @ -X-ray left hand reveals no acute process CT interpreted by me (1pt min.). @ -None done U/S interpreted by me (1pt. min.). @ -None done What testing was considered but not performed or refused? (CT, X-rays, U/S, labs)? Why? @ -None What meds were considered but not given or refused? Why? @ -None Did you discuss the management of the patient with other professionals (professionals i.e. , PA, [facility], lab, RT, psych nurse, hospice social worker, tax lawyer, teacher, industrial relations officer, director case)? Give summary @ -No Was smoking cessation discussed for >3mins.? @ -No Was critical care preformed (if so, how long)? @ -No Were there social determinants of health that impacted care today? How? (Homelessness, low income, unemployed, alcoholism, drug addiction, transportation, low edu. Level, literacy, decrease access to med. care, shelter, rehab)? @ -No Was there de-escalation of care discussed even if they declined (Discuss DNR or withdrawal of care, Hospice)? DNR status @ -No What co-morbidities impacted this encounter? (DM, HTN, Smoking, COPD, CAD, Cancer, CVA, ARF, Chemo, Hep., AIDS, mental health diagnosis, sleep apnea, morbid obesity)? @ -None Was patient admitted / discharged? Hospital course, mention meds given and route, prescriptions, significant lab abnormalities, going to OR and other pertinent info. @ -Discharge. 59-year-old female presenting for left hand injury 2 weeks ago status post mechanical fall on outstretched hand. Patient is neurovascularly intact. No sign of bacterial infection. No difficulty with range of motion. No snuffbox tenderness. X-ray left hand reveals no acute process. Discussed negative results with patient. Appropriate return precautions and follow-up care discussed. Case was discussed with my ED attending Dr. Self. Undiagnosed new problem with uncertain prognosis? @ -No Drug Therapy requiring intensive monitoring for toxicity (Heparin, Nitro, Insulin, Cardizem)? @ -No Were any procedures done? @ -No Diagnosis/symptom? @ -Left hand strain Acute, or Chronic, or Acute on Chronic? @ -Acute Uncomplicated (without systemic symptoms) or Complicated (systemic symptoms)? @ -Uncomplicated Side effects of treatment? @ -No Exacerbation, Progression, or Severe Exacerbation? @ -No Poses a threat to life or bodily function? How? (Chest pain, [place], [place], pneumonia, PE, COPD, DKA, ARF, appy, cholecystitis, CVA, Diverticulitis, Homicidal, Suicidal, threat to staff... and all critical care pts) @ -No Disposition Clinical Impression: Strain of left hand Disposition: HOME SELF-CARE Condition: Stable Instructions (If sedation given, give patient instructions): Hand Sprain (ED) Additional Instructions: Please return to the Emergency Department if symptoms worsen or any other concerns. Is patient prescribed a controlled substance at d/c from ED?: No Referrals: Alayna Holt MD [Primary Care Provider] - 1-2 days Time of Disposition: 17:38
--- NOTE | 2024-12-03 16:40 | XR ---
EXAMINATION TYPE: XR hand complete LT DATE OF EXAM: 12/03/2024 4:23 PM COMPARISON: None available. CLINICAL INDICATION: Female, 59 years old with history of left hand injury; PHH, pain TECHNIQUE: XR hand complete LT Frontal, lateral and oblique views were obtained. FINDINGS: Normal alignment of the visualized joints. No acute osseous pathology is identified. No e vidence of soft tissue swelling. 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 IMPRESSION: No acute fracture or dislocation. [facility], , 12/03/2024 4:38 PM
[2024-12-03 17:45] VITALS: BP 132/83; PULSE 68; RESP 16; TEMP 98
== END 2024-12-03 17:44 | disposition home or self-care (01) ==
LOC: EC 15:20
DX: S66.912A Strain of unspecified muscle, fascia and tendon at wrist and hand level, left hand, initial encounter (principal); Z87.891 Personal history of nicotine dependence; Z88.0 Allergy status to penicillin; Z88.8 Allergy status to other drugs, medicaments and biological substances; W19.XXXA Unspecified fall, initial encounter
CPT/HCPCS: 99283

== ENCOUNTER → 2024-12-07 | Outpatient (CLI) | payer OTHER ==
--- NOTE | 2024-12-07 20:17 | MR ---
EXAMINATION TYPE: MR wrist RT wo con DATE OF EXAM: 12/07/2024 7:26 PM COMPARISON: Hand 12/03/2024. CLINICAL INDICATION: Female, 59 years old with history of M25.531; PHH, Right wrist pain, S/P fall. TECHNIQUE: Multiplanar multisequence imaging of the wrist. No Gadolinium given. IV Contrast: mL (None, if empty) FINDINGS: Joint spaces and alignment: Normal Joint/bursal fluid: Normal Articular cartilage: Mild cartilage thinning particularly the lunate and radius artic ulation. Flexor retinaculum: Intact Median nerve: Intact Flexor tendons: Intact Extensor tendons: Intact Abductors/adductor tendons: Intact Intrinsic carpal ligaments: Widening of the scapholunate ligament interval measuring up to 5 mm. Extrinsic carpal ligaments: Intact Triangular fibrocartilage complex: Intact Neurovascular structures: Normal Marrow: Mild subchondral cystic change within the triquetrum and to lesser extent the scaphoid , lunate and base of the first metacarpal. No fracture definitely visualized. Soft tissues: Soft tissue edema tracking along the dorsal aspect of the wrist and hand. IMPRESSION: 1. Widening of the scapholunate interval possibly secondary to scapholunate ligament injury. Conside r wrist arthrogram for definitive confirmation. No acute edema around this to suggest acute injury. 2. Soft tissue swelling throughout the soft tissues of the dorsal hand and wrist. No evidence of fra cture. 3. Mild degeneration changes of the wrist worse at the lunate radius articulation and interosseous c ystic changes of the triquetrum, lunate and scaphoid and to lesser extent the base of the first metac arpal. [facility], , 12/07/2024 8:15 PM
== END | disposition home or self-care (01) ==
LOC: RADMRIMAIN 18:35
PROVIDERS: ATTEND Orthopaedic Surgery
DX: M19.031 Primary osteoarthritis, right wrist (principal)